=== PATIENT | female | born 1940 | race Caucasian/White ===

== ENCOUNTER 2016-12-25 14:57 | Emergency (ER) | payer OTHER ==
--- NOTE | 2016-12-25 16:20 | ED MVC/FALL/TRAUMA COMPLAINT ---
History of Present Illness General Chief Complaint: Fall Stated Complaint: FALL -LOC Source: patient, family, old records, friend Exam Limitations: no limitations Vital Signs & Intake/Output Vital Signs & Intake/Output Vital Signs Date Time Temp Pulse Resp B/P Pulse O2 O2 Flow FiO2 Ox Delivery Rate 12/25 1728 78 18 145/82 93 Room Air 12/25 1510 98.1 89 20 127/68 98 Room Air Allergies Coded Allergies: NO KNOWN ALLERGIES (12/07/12) Reconcile Medications Atorvastatin Calcium 10 MG TABLET 1 TAB PO DAILY CHOL (Reported) Lisinopril 10 MG TABLET 1 TAB PO DAILY HTN (Reported) Paroxetine HCl (Paxil) 10 MG TABLET 1 TAB PO DAILY ANXIETY (Reported) Paroxetine HCl 40 MG TABLET 1 TAB PO DAILY ANXIETY (Reported) Triage Note: PT TO ED S/P FALL. PT WAS WALKING OUT OF THE BATHROOM AT WORK AND TRIPPED AND FELL. HIT HEAD ON FLOOR. DENIES LOC. PT IS NOT ON BLOOD THINNERS. BUMP NOTED TO RIGHT SIDE OF HEAD. DENIES PAIN, N/V. PT HAS NO COMPLAINTS. Triage Nurses Notes Reviewed? yes Onset: Abrupt Duration: hour(s): (1), constant Timing: single episode today Severity: mild Severity Numbers: 1 Injuries/Fall Location: head, lower extremity Method of Injury: fall Loss of Consciousness: no loss of consciousness No Modifying Factors: none Associated Symptoms: denies HPI: 76-year-old female history of hypertension, TBI presents with family and friends for evaluation after she had a mechanical fall when she was walking out of the bathroom she slipped stricking the right side of her head against the floor there was no loss of consciousness. Patient on arrival denies any complaints there is no headache arm or leg pain no neck or back injury. She is declining anything when offered for pain. She presents with a hematoma over her right forehead and to her right leg however states she is been ambulatory without any pain or no modifying factors or associated symptoms no nausea no vomiting. Family states she is at her baseline she is not on any anticoagulation. No nausea no vomiting. There is no prodromal dizziness or lightheadedness prior to her fall (ALEXY EDMONDS,FORTUNATO) Past History Travel History Traveled to [place] past 21 day No Medical History Any Pertinent Medical History? see below for history Cardiovascular: hypertension, hyperlipidemia Psychiatric: anxiety, depression Pneumonia Vaccine: 12/07/12 Influenza Vaccine: 10/02/12 Tetanus Vaccine: 12/06/12 Surgical History Surgical History: none Psychosocial History Who do you live with Patient/Self What is your primary language Hungarian Tobacco Use: Never used ETOH Use: denies use Illicit Drug Use: denies illicit drug use Family History Hx Contributory? No (FORTUNATO LEE) Review of Systems Review of Systems Constitutional: Reports: see HPI. All Other Systems: Reviewed and Negative Comments Review of systems: See HPI, All other systems negative. Constitutional, no chills no fever, no malaise HEENT: No visual changes no sore throat no congestion, no ear pain Cardiovascular: No chest pain , no palpitation Skin, no jaundice no rashes, no change in skin Respiratory: No dyspnea no cough no sputum GI: No nausea no vomiting, no diarrhea, no bloating/constipation : No dysuria Muscle skeletal: No joint pain, no back pain, no neck pain, Neurologic: No numbness no headache Psych: No stress Heme/endocrine: No bruising no bleeding Immunology: No lymphadenopathy (FORTUNATO LEE) Physical Exam Physical Exam General Appearance: well developed/nourished, no apparent distress, alert, awake Comments: Well-developed well-nourished person in no acute distress HEENT: Normal EENT exam; PERRL, EOMI, no nystagmus. There is a small 2 cm scalp hematoma to the right forehead the skin is intact the rest of the scalp is atraumatic lacerations or abrasions the scalp and face are nontender no facial swelling no raccoon eyes no kelly signs no hemotympanum. moist mucous membranes. Neck: Supple, no midline or paracervical tenderness normal range of motion without pain or tenderness Back: Nontender, no CVA tenderness. Full range of motion Cardiovascular: Regular rate and rhythms no murmurs rubs or gallops Respiratory: Chest nontender.There were no bony deformities, no asymmetry. No respiratory distress. Patient speaking in full complete sentences. Breath sounds clear to auscultation bilaterally: NO W/R/R Abdomen: Soft, nontender nondistended, no appreciable organomegaly. Normal bowel sounds. No rebound/guarding, Extremity: There is a small hematoma noted over the lateral aspect of the right mid lower leg, nontender no obvious deformity, there is full range of motion of the right ankle there is no proximal tib-fib tenderness the knee has full range of motion there is no deformity no rotation No edema, full range of motion of extremities, normal and equal pulses bilaterally, 5 out of 5 strength noted to bilateral upper and lower extremities Neuro: Alert oriented x3, motor sensory normal, cranial nerves II through XII grossly intact. There were no obvious focal neurologic abnormalities. Skin: No appreciable rash on exposed skin, skin is warm and dry. Psych: Mood and affect is normal, memory and judgment is normal. Core Measures ACS in differential dx? No Severe Sepsis Present: No Septic Shock Present: No (ALEXY EDMONDS,FORTUNATO) Progress Differential Diagnosis: C/T/L spine injury, ext injury, ICH, spinal cord injury Plan of Care: The patient denies any complaints she is ambulatory here in the ER was a CAT scan ordered There is no other bruising to the skin, the patient is asymptomatic I discussed with her and her family her CT results and need for supportive care rest ice Tylenol Motrin advise close follow-up with her primary care physician this week, advised return anytime sooner with any concerns they feel comfortable plan cleared for discharge the pt was mistakenly assigned cosigner jeet gonzalez by accident, the pt was not seen by jeet gonzalez Diagnostic Imaging: Viewed by Me: CT Scan. Discussed w/RAD: CT Scan. Radiology Impression: PATIENT: GLORIA JONES PRESENT AGE: 76 PATIENT ACCOUNT NO: [id number] : 38 LOCATION: [facility] ORDERING PHYSICIAN: FORTUNATO EDMONDS SERVICE DATE: 12/25/16 EXAM TYPE: CAT - CT HEAD WO IV CONTRAST EXAMINATION: CT HEAD WITHOUT CONTRAST CLINICAL INFORMATION: Evaluate for intracranial hemorrhage. Fall. Hit head. COMPARISON: CT head November 2012 TECHNIQUE: Contiguous axial imaging was performed from the skull base to vertex without intravenous administration of contrast. DLP: 529 mGy-cm FINDINGS: There is no evidence of acute intracranial hemorrhage or territorial infarction. No abnormal mass effect or midline shift is seen. Gooden to white matter differentiation is well preserved. No extra-axial fluid collections are identified. The ventricles are normal in size. There is no abnormal attenuation within the brain parenchyma. The osseous structures and soft tissues are normal. Mild mucosal thickening of the ethmoid sinuses IMPRESSION: No acute intracranial pathology. Mucosal thickening of the ethmoid sinuses. Similar findings noted previously DICTATED BY: GARY CAMERON MD DATE/TIME DICTATED:12/25/161643 [employer] PROJECT MANAGER:JUMANA DATE/TIME TRANSCRIBED:12/25/161643 CONFIDENTIAL, DO NOT COPY WITHOUT APPROPRIATE AUTHORIZATION. <Electronically signed in Other Vendor System> SIGNED BY: GARY CAMERON MD 12/25/16 165 (FORTUNATO LEE) Plan of Care: I was not involved in the care of this patient. Juan Gonzalez PA-C (JUAN BURRIS) Departure Departure Time of Disposition: 1724 Disposition: HOME OR SELF CARE Condition: Stable Clinical Impression Primary Impression: Minor head injury without loss of consciousness Secondary Impressions: Fall, Scalp hematoma Referrals: ANNE CHOI MD (PCP/Family) Additional Instructions: Rest ice Tylenol if needed, follow up with her primary care physician return with any concerns Departure Forms: Customer Survey General Discharge Information (FORTUNATO LEE) PA/DISTRICT WIRE CHIEF Co-Sign Statement Statement: ED Attending supervision documentation- [x] I saw and evaluated the patient. I have also reviewed all the pertinent lab results and diagnostic results. I agree with the findings and the plan of care as documented in the PA's/DISTRICT WIRE CHIEF's documentation. [] I have reviewed the ED Record and agree with the PA's/DISTRICT WIRE CHIEF's documentation. [] Additions or exceptions (if any) to the PAs/DISTRICT WIRE CHIEF's note and plan are summarized below: [] (JUAN BURRIS) PA/DISTRICT WIRE CHIEF Co-Sign Statement Statement: ED Attending supervision documentation- [x] I saw and evaluated the patient. I have also reviewed all the pertinent lab results and diagnostic results. I agree with the findings and the plan of care as documented in the PA's/DISTRICT WIRE CHIEF's documentation. [] I have reviewed the ED Record and agree with the PA's/DISTRICT WIRE CHIEF's documentation. [] Additions or exceptions (if any) to the PAs/DISTRICT WIRE CHIEF's note and plan are summarized below: [] (ISRAEL KU,VISHAL Damon)
--- NOTE | 2016-12-25 16:51 | CT SCAN REPORT ---
EXAMINATION: CT HEAD WITHOUT CONTRAST CLINICAL INFORMATION: Evaluate for intracranial hemorrhage. Fall. Hit head. COMPARISON: CT head November 2012 TECHNIQUE: Contiguous axial imaging was performed from the skull base to vertex without intravenous administration of contrast. DLP: 529 mGy-cm FINDINGS: There is no evidence of acute intracranial hemorrhage or territorial infarction. No abnormal mass effect or midline shift is seen. Gooden to white matter differentiation is well preserved. No extra-axial fluid collections are identified. The ventricles are normal in size. There is no abnormal attenuation within the brain parenchyma. The osseous structures and soft tissues are normal. Mild mucosal thickening of the ethmoid sinuses IMPRESSION: No acute intracranial pathology. Mucosal thickening of the ethmoid sinuses. Similar findings noted previously
[2016-12-25 17:28] VITALS: BP 145/82
[2016-12-25] MEDS ORDERED: PAXIL10 M1 PO (18:07)
[2016-12-25] MEDS ORDERED: ATORVASTATIN CA10 M1 PO (18:08)
[2016-12-25] MEDS ORDERED: LISINOPRIL10 M1 PO (18:08)
[2016-12-25] MEDS ORDERED: PAROXETINE HCL40 M1 PO (18:08)
[2017-01-01] MEDS ORDERED: VITAMIN D400 UNIT (15:26)
== END 2016-12-25 18:14 ==
LOC: ERH 14:57
DX: S09.90XA Unspecified injury of head, initial encounter (principal); S00.03XA Contusion of scalp, initial encounter; W01.0XXA Fall on same level from slipping, tripping and stumbling without subsequent striking against object, initial encounter; Y93.01 Activity, walking, marching and hiking; Y92.9 Unspecified place or not applicable

== ENCOUNTER → 2017-01-01 | Emergency (ER) | payer OTHER ==
[~2017-01-01] VITALS: Ht 152.4 cm; Wt 61.2 kg
[~2017-01-01] MED LIST: ATORVASTATIN CA10 M1 PO; LISINOPRIL10 M1 PO; PAROXETINE HCL40 M1 PO; PAXIL10 M1 PO; VITAMIN D400 UNIT
--- NOTE | 2017-01-01 14:59 | RADIOLOGY REPORT ---
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 COMPARISON: None TECHNIQUE: 3 views of the right leg. FINDINGS: The right knee replacement is in the normally expected orientation. There is no evidence of hardware failure. No new fracture is seen nor is there any evidence of dislocation or subluxation. There is some soft tissue swelling involving the right calf. Also, mature periosteal new bone formation parallels the distal lateral shaft of the tibia doesn't relate to the interosseous membrane. There is soft tissue swelling at the lateral malleolus. IMPRESSION: Soft tissue swelling. No fracture or dislocation. Mature periosteal reaction along the distal lateral cortex of the right tibia most likely representing posttraumatic changes involving the interosseous membrane.
--- NOTE | 2017-01-01 15:20 | ED UPPER/LOWER EXTREMITY COMPL ---
History of Present Illness General Chief Complaint: Lower Extremity Problems Stated Complaint: R LEG SWELLING Source: patient, old records, friend Exam Limitations: no limitations Vital Signs & Intake/Output Vital Signs & Intake/Output Vital Signs Date Time Temp Pulse Resp B/P Pulse O2 O2 Flow FiO2 Ox Delivery Rate 01/01 1651 97.9 90 16 128/73 97 Room Air 01/01 1615 Room Air 01/01 1253 97.4 91 18 130/69 95 Room Air Allergies Coded Allergies: NO KNOWN ALLERGIES (12/07/12) Reconcile Medications Atorvastatin Calcium 10 MG TABLET 1 TAB PO DAILY CHOL (Reported) Ergocalciferol (Vitamin D2) (Vitamin D) (Unknown Strength) TABLET (Unknown Dose) BID vitamin (Reported) Lisinopril 10 MG TABLET 1 TAB PO DAILY HTN (Reported) Paroxetine HCl (Paxil) 10 MG TABLET 1 TAB PO DAILY ANXIETY (Reported) Paroxetine HCl 40 MG TABLET 1 TAB PO DAILY ANXIETY (Reported) Triage Note: 76 Y/O FEMALE RETURNS TO ED FOR EVAL OF RIGHT LOWER EXTREMITY SWELLING AND BRUISING; PT STATES SHE FELL LAST WEEK AND WAS EVAL'D IN ED BUT ONLY HAD SMALL BUMP ON LEG; WAS TOLD IT WAS A HEMATOMA. OVER THE LAST WEEK, LUMP HAS GOTTEN LARGER AND PT NOW HAS BRUISING BEHIND CALF, BEHIND THIGH AND INTO MIGUEL. LUMP IS IN AREA OF MIGUEL. PT STATES PAIN IS FROM MID THIGH DOWN TO ANKLE. AMBULATORY WITH CANE AT BASELINE. DENIES BEING ON BLOOD THINNERS. SPOKE WITH DR XOCHITL KENNEY/US ORDERED. Triage Nurses Notes Reviewed? yes HPI: Patient is a 76-year-old female presents complaining of right lower extremity bruising and swelling. Patient fell approximately one week ago onto her right side. Patient was evaluated in the emergency department for a head injury and discharged home. Patient reports bruising and swelling has increased over the past 1 week. Bruising extends from the right hip down to his right ankle. Pain is 1 out of 10, worsens with palpation. Patient has a "lump" to the right lateral leg just distal to the knee. Denies numbness, weakness, decreased range of motion. (ALIYA EDMONDS,CHARLIE) Past History Travel History Traveled to [place] past 21 day No Medical History Any Pertinent Medical History? see below for history Neurological: NONE EENT: NONE Cardiovascular: hypertension, hyperlipidemia Respiratory: NONE Gastrointestinal: NONE Hepatic: NONE Renal: NONE Musculoskeletal: NONE Psychiatric: anxiety, depression Endocrine: NONE Blood Disorders: NONE Cancer(s): NONE REGULATORY ASSISTANT/Reproductive: NONE Tetanus Vaccine: 12/06/12 Surgical History Surgical History: none Psychosocial History Who do you live with Patient/Self What is your primary language Thai Tobacco Use: Never used Family History Hx Contributory? No (CHARLIE BURRIS) Review of Systems Review of Systems Constitutional: Denies: chills, fever. EENTM: Denies: blurred vision. Respiratory: Reports: no symptoms. Denies: short of breath. Cardiovascular: Denies: chest pain. Gastrointestinal/Abdominal: Denies: abdominal pain. Musculoskeletal: Denies: back pain, neck pain. Neurological/Psychological: Denies: headache, numbness. Hematologic/Endocrine: Reports: bruising. (CHARLIE BURRIS) Physical Exam Physical Exam General Appearance: well developed/nourished, alert, awake Head: subacute ecchymosis to the right maxillary area. No tenderness Eyes: Bilateral: normal appearance. Ears, Nose, Throat: hearing grossly normal Neck: normal inspection, supple, full range of motion Cardiovascular/Respiratory: no respiratory distress Peripheral Pulses: 2+ tibialis posterior (R), 2+ dorsalis pedis (R) Back: normal inspection, normal range of motion, no vertebral tenderness Leg Right: 6 cm hematoma to the right lateral proximal leg. Mild tenderness. Hip Right: eccymosis extending from right hip to right ankle. No bony tenderness. Full active range of motion Foot Right: normal inspection, normal range of motion Neurologic/Tendon: normal sensation, normal motor functions, normal tendon functions Skin: warm/dry, ecchymosis (right lower extremity) (CHARLIE BURRIS) Progress Differential Diagnosis: contusion, DVT, fracture, sprain Plan of Care: Orders Procedure Date/time Status US-UNILATERAL VENOUS DOPPLER 01/01 1257 Active 01/01/2017 3:38:27 PM: discussed with and seen by Dr. Leung. Results of x-ray and ultrasound discussed with the patient and her friend. Patient appears stable for discharge. Patient has an appointment with her primary care doctor on . (CHARLIE BURRIS) Diagnostic Imaging: Viewed by Me: Radiology Read, Ultrasound. Discussed w/RAD: Radiology Read, Ultrasound. 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 COMPARISON: None TECHNIQUE: 3 views of the right leg. FINDINGS: The right knee replacement is in the normally expected orientation. There is no evidence of hardware failure. No new fracture is seen nor is there any evidence of dislocation or subluxation. There is some soft tissue swelling involving the right calf. Also, mature periosteal new bone formation parallels the distal lateral shaft of the tibia doesn't relate to the interosseous membrane. There is soft tissue swelling at the lateral malleolus. IMPRESSION: Soft tissue swelling. No fracture or dislocation. Mature periosteal reaction along the distal lateral cortex of the right tibia most likely representing posttraumatic changes involving the interosseous membrane. DICTATED BY: LUIS WILSON MD DATE/TIME DICTATED:1449 BANANA ROOM CUTTER:JUMANA DATE/TIME TRANSCRIBED:01/01/171449 CONFIDENTIAL, DO NOT COPY WITHOUT APPROPRIATE AUTHORIZATION. <Electronically signed in Other Vendor System> SIGNED BY: LUIS WILSON MD 01/01/17 1459, PATIENT: GLORIA JONES PRESENT AGE: 76 PATIENT ACCOUNT NO: [id number] : 38 LOCATION: [facility] ORDERING PHYSICIAN: SOFY EDMONDS SERVICE DATE: 01/01/17-1256 EXAM TYPE: US - US-UNILATERAL VENOUS DOPPLER EXAMINATION: US LOWER EXTREMITY VEIN, RIGHT CLINICAL INFORMATION: Right lower extremity pain and swelling. COMPARISON: None TECHNIQUE: Doppler spectral analysis and color flow Doppler imaging was performed of the right lower extremity. Compression and augmentation maneuvers were performed. FINDINGS: The right common femoral, femoral, popliteal and calf veins were well-identified and normal. They demonstrate normal compressibility and color fill-in. In the area of tenderness in the right calf there is a 5.8 x 1.9 x 5.2 cm probable hematoma. No vascularity is seen. Followup of this mass clinically should be performed. IMPRESSION: No evidence for right lower extremity deep vein thrombosis. Mass on the right is most likely a hematoma. This should be observed clinically to improve or resolve. DICTATED BY: ERIKA GONZALEZ MD DATE/TIME DICTATED:01/01/171403 BANANA ROOM CUTTER:JUMANA DATE/TIME TRANSCRIBED:01/01/171403 CONFIDENTIAL, DO NOT COPY WITHOUT APPROPRIATE AUTHORIZATION. <Electronically signed in Other Vendor System> SIGNED BY: ERIKA GONZALEZ MD 01/01/17 1547 (CHARLIE BURRIS) Departure Departure Time of Disposition: 1547 Disposition: HOME OR SELF CARE Condition: Stable Clinical Impression Primary Impression: Hematoma of right lower extremity Qualifiers: Encounter type: initial encounter Qualified Code: S80.11XA - Contusion of right lower leg, initial encounter Referrals: ANNE CHOI MD (PCP/Family) Additional Instructions: Rest, elevate your leg. Follow-up with your primary doctor this week for recheck and further evaluation. Return to the emergency department if fevers, increasing pain, or worsening of symptoms. Departure Forms: Customer Survey General Discharge Information (CHARLIE BURRIS) PA/MARKETING UNDERWRITER Co-Sign Statement Statement: ED Attending supervision documentation- [x] I saw and evaluated the patient. I have also reviewed all the pertinent lab results and diagnostic results. I agree with the findings and the plan of care as documented in the PA's/MARKETING UNDERWRITER's documentation. [] I have reviewed the ED Record and agree with the PA's/MARKETING UNDERWRITER's documentation. [] Additions or exceptions (if any) to the PAs/MARKETING UNDERWRITER's note and plan are summarized below: [] (VISHAL LEUNG DO
--- NOTE | 2017-01-01 15:47 | ULTRASOUND REPORT ---
EXAMINATION: US LOWER EXTREMITY VEIN, RIGHT CLINICAL INFORMATION: Right lower extremity pain and swelling. COMPARISON: None TECHNIQUE: Doppler spectral analysis and color flow Doppler imaging was performed of the right lower extremity. Compression and augmentation maneuvers were performed. FINDINGS: The right common femoral, femoral, popliteal and calf veins were well-identified and normal. They demonstrate normal compressibility and color fill-in. In the area of tenderness in the right calf there is a 5.8 x 1.9 x 5.2 cm probable hematoma. No vascularity is seen. Followup of this mass clinically should be performed. IMPRESSION: No evidence for right lower extremity deep vein thrombosis. Mass on the right is most likely a hematoma. This should be observed clinically to improve or resolve.
[2017-01-01 16:51] VITALS: BP 128/73
== END ==
LOC: ERH 12:48
DX: S80.11XA Contusion of right lower leg, initial encounter (principal); W19.XXXA Unspecified fall, initial encounter; Y93.9 Activity, unspecified; Y92.9 Unspecified place or not applicable
CPT/HCPCS: 73590-RT